=== PATIENT | male | born 1965 | race Caucasian/White ===

== ENCOUNTER 2016-04-07 06:15 | Emergency (ER) | payer SELFPAY ==
[~2016-04-07] VITALS: Ht 177.8 cm; Wt 83.0 kg
[2016-04-07 06:18] VITALS: Ht 177.8 cm; Wt 83.0 kg
[2016-04-07] MEDS ORDERED: LIDO20SO19 MM (06:57)
[2016-04-07] MEDS ORDERED: AMO500 PO (06:57)
[2016-04-07] MEDS ORDERED: NAPR-260 PO (06:57)
--- NOTE | 2016-04-07 07:00 | ERD ---
ER Documentation Chief Complaint Date/Time DATE: 04/07/16 TIME: 06:58 Chief Complaint swollen uvula HPI 50-year-old male comes in with swollen uvula that woke him up in the evening last night. Patient states that earlier before he went to bed he had dinner and ate hot Ramen and he felt that he had some discomfort in the uvula area, then he woke up today and noticed swelling on the right side of the uvula, and he had spit up some blood. There is no history of fever, shortness of breath, angioedema or respiratory distress. No rashes. No hemoptysis. ROS All systems reviewed and are negative except as per history of present illness. Medications Home Meds Active Scripts Naproxen* (Naprosyn*) 500 Mg Tablet, 500 MG PO BID Y for PAIN AND/OR INFLAMMATION, #30 TAB Prov:JOVANY GOLDSTEIN PA-C 04/07/16 Lidocaine (Lidocaine Viscous) 100 Ml Soln, 10 ML MM BID, #1 BOTTLE Prov:JOVANY GOLDSTEIN PA-C 04/07/16 Amoxicillin* (Amoxicillin*) 500 Mg Cap, 500 MG PO TID for 7 Days, CAP Prov:JOVANY GOLDSTEIN PA-C 04/07/16 Allergies Allergies: Coded Allergies: No Known Allergy (Unverified , 04/07/16) PMhx/Soc History of Surgery: Yes (pancreas) Anesthesia Reaction: No Hx Neurological Disorder: No Hx Respiratory Disorders: No Hx Cardiac Disorders: No Hx Psychiatric Problems: No Hx Miscellaneous Medical Probl: No Hx Alcohol Use: No Hx Substance Use: No Hx Tobacco Use: No Smoking Status: Never smoker Physical Exam Vitals Vital Signs Date Time Temp Pulse Resp B/P Pulse Ox O2 Delivery O2 Flow Rate FiO2 04/07/16 06:18 98.7 72 18 123/77 95 Physical Exam General: Well-developed, well-nourished. The patient appears in no acute distress. HEENT: Head is normocephalic, atraumatic. No scleral icterus. Right side of the uvula is ecchymotic, mildly edematous, there is no induration or fluctuance , uvula is midline, no masses, no exudate Neck: Supple. Nontender. Lungs: Clear to auscultation. Normal air movement. Heart: Regular rate and rhythm. S1 and S2 are normal. No murmurs, gallops, or rubs. Abdomen: Nondistended. Extremities: No clubbing or cyanosis. Moving extremities x 4. No weakness. Neurologic: Alert and oriented 3. No focal deficits. Normal speech and gait. Skin: Normal turgor. No rash or lesions. Procedures/MDM 50-year-old male comes in with an ecchymotic uvula, likely from trauma versus an abrasion. Patient will be treated for pharyngeal abrasion and will be treated with antibiotics, viscous lidocaine, and Naprosyn. He has been asked to eat soft foods, and to follow-up with ENT within a week. There is no evidence of peritonsillar abscess, retropharyngeal abscess, strep pharyngitis, trismus. Departure Diagnosis: Primary Impression: Uvular swelling Condition: Good Patient Instructions: Pharyngeal Abrasion Referrals: JAY AVILA MD Additional Instructions: ENT SPECIALIST: YOU HAVE A MEDICAL CONDITION WHICH REQUIRES YOU TO SEE A SPECIALIST WITHIN THE NEXT WEEK. PLEASE FOLLOW UP WITH YOUR PRIMARY PHYSICIAN FOR REFFERAL.IF YOU DO NOT HAVE A PRIMARY CARE PHYSICIAN AND/OR YOU CAN NOT AFFORD TO SEE A PHYSICIAN THE FOLLOWING RESOURCES HAVE BEEN SUPPLIED TO YOU. IT IS YOUR RESPONSIBILITY TO BE SEEN BY THE SPECIALIST JOVANY GOLDSTEIN PA-C Apr 07, 2016 07:00
== END 2016-04-07 07:21 | disposition home or self-care (01) ==
LOC: FTE 06:15
DX: K13.79 Other lesions of oral mucosa (principal)
CPT/HCPCS: 99283